=== PATIENT | female | born 1990 | race Caucasian/White ===

== ENCOUNTER 2020-02-22 16:40 | Outpatient (CLI) | payer OTHER, SELFPAY ==
[2020-02-22 16:57] VITALS: BP 108/65; PULSE 64; TEMP 37.2; O2SAT 99
[2020-02-22 17:06] VITALS: BMI 31.3
--- NOTE | 2020-03-04 09:03 | OB.TRI.PN ---
Progress Notes Date of Service: 02/24/20 Progress Note: 29 year old female.Presented with contractions and possible signs of labor. No vaginal bleeding and good FM O:No cervical change Reactive NST A: False Labor P: 1) D/C home
== END 2020-02-22 17:25 | disposition home or self-care (01) ==
LOC: WPOUT 16:48 → OBT 16:49
PROVIDERS: PCP Internal Medicine; Visit Provider Advanced Practice Midwife
DX: O47.9 False labor, unspecified (principal)
CPT/HCPCS: 59050; 99218; G0378

== ENCOUNTER 2020-02-26 20:16 | Inpatient (IN) | payer OTHER, SELFPAY ==
[2020-02-26] VITALS (14 sets, daily range): BP systolic 100–126; BP diastolic 58–75; PULSE 60–80; TEMP 36.7–37.3; O2SAT 97; BMI 31.8
[2020-02-26] MEDS: Lactated Ringers 1,000 ML 50 ML IV (20:20)
[2020-02-26] MEDS: Oxytocin 30 units/NS 500 ml 30 UNITS/500 ML IV.SOLN 334 UNITS IV (20:55)
[2020-02-26 21:14] LABS: Absolute Lymphocyte Count 2.53 X10^3/uL (0.83-4.51); Absolute Neutrophil Count 9.3 X10^3/uL (2.0-7.7); Basophil# 0.06 X10^3/uL; Basophil% 0.5 % (0-1); Eosinophil# 0.24 X10^3/uL; Eosinophils% 1.9 % (0-5); Hematocrit 41.7 % (37-47); Hemoglobin 13.7 g/dL (12.0-15.0); Lymphocyte # 2.53 X10^3/ul (4.0); Lymphocyte % 19.6 % (19-41); Mean Corp Hgb Conc 32.9 g/dL (32-36); Mean Corpuscular Volume 85.3 fL (81-99); Mean Platelet Vol. 11.5 fl (6.2-12.0); Monocyte# 0.75 X10^3/uL; Monocyte% 5.8 % (0-10); NRBC Flagged by Analyzer 0 % (0-5); Neutrophil # 9.28 X10^3/uL (2.7-7.7); Neutrophil % 71.6 % (47-70); Platelet Count 174 K/mm3 (150-450); RBC Distribution Width CV 13.5 % (11.6-14.6); RBC Distribution Width SD 41.3 fl (35.1-43.9); Red Blood Count 4.89 M/mm3 (4.2-5.4); White Blood Count 12.9 K/mm3 (4.4-11.0)
--- NOTE | 2020-02-26 21:24 | PCM.HP.OB ---
History Date of Admission: 02/26/20 Final EVY: 03/07/20 Gestational age: 38 Weeks and 4 Days History of this : This is a 29 year-old, G [], P [], at weeks gestational age. Allergies No Known Allergies Allergy (Verified 12/14/15 01:37) Home Medications: Home Medications Vits [Prenatabs FA] 1 tablet PO DAILY 12/14/15 Ibuprofen [Motrin] 800 mg PO TID PRN PRN #30 tablet 12/16/15 Smoking Status: Never smoker History Past Pregnancies: Past Pregnancies Delivery Date Name GA/ Weeks Outcome Route Wt Infant Sex Labor Length Anesthesia Delivery Location Provider FOB Labs: See [facility] H&P Physical Exam Vitals: Vital Signs Pulse BP 65 126/75 H 02/26/20 19:56 02/26/20 19:56 Assessment/Plan This is a 29 year-old female presented in labor @38&4 Patient is now s/p
--- NOTE | 2020-02-26 21:26 | PCM.OPRPT ---
Vaginal Delivery Maternal Presentation: Active Labor Amniotic Membrane Rupture Type: Spontaneous at home Amniotic Fluid Description: Clear Final EVY: 03/07/20 Gestational age: 38 Weeks and 4 Days Date of Procedure: 02/26/20 Pre-Operative Diagnosis: Labor Post-Operative Diagnosis: Labor Surgery/ Procedure Performed: Spontaneous Vaginal Delivery Type of Anesthesia: None, Local with 1% lidocaine Description of Procedure: Patient in stirrups when C/C/+2. She pushed to deliver head. Shoulders & body easily followed. placed on maternal abdomen where 3VC clamped & cut in delayed fashion. Placenta delivered with gentle traction. Good uterine tone obtained. Presentation: BRIAN Placental Delivery Description: Expressed Placenta Disposition: [facility] Cord Vessel Description: 3 Vessels Cord Entanglement: None Estimated Blood Loss: 300ml Infant A gender: Male (1 minute): 7 (5 minute): 9 Episiotomy Description: None Laceration: 2nd degree - perineal - repaired with 3-0 vicryl Medications given after delivery: IV Pitocin Complications: None
[2020-02-26] MEDS: Ketorolac 30 MG/ML Syringe IV (22:33)
[2020-02-27] MEDS: Ibuprofen 600 MG Tablet PO ×2 (01:47→23:53)
[2020-02-27 03:30] VITALS: BP 102/61; PULSE 66; RESP 18; TEMP 36.8
--- NOTE | 2020-02-27 07:55 | PCM.PN.OB ---
Subjective: pt seen at bedside, doing well. pt reports good pain control. lochia mild. breast feeding well. - Physical Exam Vitals/I&O's: Vital Signs Temp Pulse Resp BP Pulse Ox 98.2 F 66 18 102/61 97 02/27/20 03:30 02/27/20 03:30 02/27/20 03:30 02/27/20 03:30 02/26/20 19:55 Weight: 81.647 kg Body Mass Index (BMI) 31.8 Intake and Output for Last 24 Hours 02/25/20 02/26/20 02/27/20 23:59 23:59 23:59 Intake Total 525 / 525 1000 / 1000 Output Total 700 / 700 Balance 525 / 225 300 / 300 General: Alert, Oriented x3 Abdomen: Soft, Non Tender, Non-Distended, - - fundus firm Extremities: No Calf Tenderness Laboratory Results 02/26/20 20:20: WBC 12.9 H, RBC 4.89, Hgb 13.7, Hct 41.7, MCV 85.3, MCH 28.0, MCHC 32.9, RDW Std Deviation 41.3, RDW Coeff of Tucker 13.5, Plt Count 174, MPV 11.5, Immature Gran % (Auto) 0.600, Neut % (Auto) 71.6 H, Lymph % (Auto) 19.6, [place] % (Auto) 5.8, Eos % (Auto) 1.9, Baso % (Auto) 0.5, Absolute Neuts (auto) 9.3 H, Absolute Lymphs (auto) 2.53, Nucleated RBC % 0 02/26/20 20:20: Blood Type O POSITIVE, Antibody Screen NEGATIVE Current Medications Acetaminophen (Tylenol) 1,000 mg PO Q8H PRN PRN PRN Reason: Pain Score 1-3/10 Bisacodyl (Dulcolax) 10 mg RECTAL UD PRN PRN Reason: If no BM Dibucaine (Dibucaine) 1 applic TOPICAL TID PRN PRN; Protocol PRN Reason: Discomfort Hydrocortisone (Hytone) 1 applic TOPICAL TID PRN PRN; Protocol PRN Reason: Discomfort Ibuprofen (Motrin) 600 mg PO Q6H PRN PRN PRN Reason: Pain Score 1-3/10 Last Admin: 02/27/20 01:47 Dose: 600 mg Documented by: Methylergonovine Maleate (Methergine) 0.2 mg IM X1 PRN PRN Reason: Excess bleeding/uterine atony Ondansetron HCl (Zofran) 4 mg IV Q4H PRN PRN PRN Reason: Nausea Oxycodone HCl (Oxyir) 5 - 10 mg PO Q4H PRN PRN PRN Reason: Pain Score 4-10/10 Senna/Docusate Sodium (Senokot-S, Gifty-Colace) 1 - 2 tablet PO DAILY PRN PRN PRN Reason: Constipation Simethicone (Mylicon) 80 mg PO PCHS PRN PRN Reason: Indigestion/Stomach pain Sodium Chloride () 5 - 15 ml IV UD PRN PRN Reason: SALINE FLUSH Medical Necessity - Tobacco Use Smoking Status: Never smoker Assessment/Plan PPD#1, doing well routine care pain mgmt dc home
[2020-02-27 08:14] VITALS: BP 94/65; PULSE 71; RESP 16; TEMP 37; O2SAT 95
[2020-02-27 12:29] VITALS: BP 119/64; PULSE 77; RESP 16; TEMP 37.4; O2SAT 96
[2020-02-27] MEDS: Acetaminophen 500 MG Tablet 1000 MG PO (12:43)
[2020-02-27 16:04] VITALS: BP 99/57; PULSE 67; RESP 16; TEMP 37.1; O2SAT 97
[2020-02-27 21:15] VITALS: BP 103/63; PULSE 72; RESP 15; TEMP 36.9; O2SAT 99
[2020-02-28 02:12] VITALS: BP 104/63; PULSE 54; RESP 15; TEMP 36.8; O2SAT 98
[2020-02-28] MEDS: Dibucaine 30 GM Tube 1 APPLIC TOPICAL (06:43)
--- NOTE | 2020-02-28 07:13 | PCM.PN.OB ---
Subjective: Patient seen at bedside, doing well. Patient reports good pain control. Mild lochia. Breast-feeding without difficulty. Ready for DC home today. - Physical Exam Vitals/I&O's: Vital Signs Temp Pulse Resp BP Pulse Ox 98.2 F 54 L 15 104/63 98 02/28/20 02:12 02/28/20 02:12 02/28/20 02:12 02/28/20 02:12 02/28/20 02:12 Oxygen Delivery Method Room Air Weight: 81.647 kg Body Mass Index (BMI) 31.8 Intake and Output for Last 24 Hours 02/26/20 02/27/20 02/28/20 23:59 23:59 23:59 Intake Total 525 / 525 1000 / 1000 Output Total 700 / 700 Balance 525 / 225 300 / 300 General: Alert, Oriented x3 Abdomen: Soft Extremities: No Calf Tenderness Current Medications Acetaminophen (Tylenol) 1,000 mg PO Q8H PRN PRN PRN Reason: Pain Score 1-3/10 Last Admin: 02/27/20 12:43 Dose: 500 mg Documented by: Bisacodyl (Dulcolax) 10 mg RECTAL UD PRN PRN Reason: If no BM Dibucaine (Dibucaine) 1 applic TOPICAL TID PRN PRN; Protocol PRN Reason: Discomfort Last Admin: 02/28/20 06:43 Dose: 1 tube Documented by: Hydrocortisone (Hytone) 1 applic TOPICAL TID PRN PRN; Protocol PRN Reason: Discomfort Ibuprofen (Motrin) 600 mg PO Q6H PRN PRN PRN Reason: Pain Score 1-3/10 Last Admin: 02/27/20 23:53 Dose: 600 mg Documented by: Methylergonovine Maleate (Methergine) 0.2 mg IM X1 PRN PRN Reason: Excess bleeding/uterine atony Ondansetron HCl (Zofran) 4 mg IV Q4H PRN PRN PRN Reason: Nausea Oxycodone HCl (Oxyir) 5 - 10 mg PO Q4H PRN PRN PRN Reason: Pain Score 4-10/10 Senna/Docusate Sodium (Senokot-S, Gifty-Colace) 1 - 2 tablet PO DAILY PRN PRN PRN Reason: Constipation Simethicone (Mylicon) 80 mg PO PCHS PRN PRN Reason: Indigestion/Stomach pain Sodium Chloride () 5 - 15 ml IV UD PRN PRN Reason: SALINE FLUSH Medical Necessity - Tobacco Use Smoking Status: Never smoker Assessment/Plan PPD#2, doing well routine care pain mgmt dc home
--- NOTE | 2020-02-28 07:15 | DCINST_ITS ---
Discharge Diet: No Restrictions Discharge Activity: Return to Normal Activity, May not drive while taking narcotic pain medications., May Shower May resume sexual activity in: 4-6 weeks Additional Activity Instructions:: Nothing in the vagina for 4-6 weeks. You may return to work/school in 6 weeks. Call your doctor if your incision/area has: Continuous Slow Oozing, Sudden Increased Bleeding, Increased Pain/ Swelling, Increased Redness, Foul Smelling Discharge Additional Instructions: If you experience any of the following, contact your healthcare provider. * Bleeding that soaks a pad every hour for 2 hours * Fever 100.4 or higher * Unrelieved incision or abdominal pain * Swelling, redness, discharge or bleeding from your incision or episiotomy site * Your incision begins to separate * Problems urinating (including inability to urinate or burning while urinating). * Visual changes * Severe headache * Flu-like symptoms * Pain or redness in one of both of your breasts * Pain, warmth, tenderness or swelling in your legs, especially the calf area * Frequent nausea and vomiting * Symptoms of depression or anxiety If you experience any of the following, call 911 or go to the nearest Emergency Room. * Chest pain * Problems breathing * Seizure activity * Partial or complete paralysis of a body part, slurred speech, weakness or drooping of the face, or a sudden inability to walk or hold your balance Allergies/Adverse Reactions: Allergies No Known Allergies Allergy (Verified 12/14/15 01:37) Medications to take at Discharge Vits [Prenatabs FA ] 1 tablet PO DAILY 12/14/15 Ibuprofen [Motrin] 600 mg PO Q6H PRN PRN #30 tab 02/28/20 The following prescriptions were given: Ibuprofen [Motrin] 600 mg PO Q6H PRN PRN #30 tab PRN Reason: Pain Score 1-3/10 Prescription Printed When: Call to make an appointment with your doctor in 1-2 weeks- virtual visit is fine. need 6 week visit. [phone] Primary Care Physician: Poonam Turcios DO [Primary Care Provider] - Test Results: Test results from this visit will be discussed in further detail at your follow- up appointment, if applicable.
[2020-02-28 08:40] VITALS: BP 97/63; PULSE 59; RESP 20; TEMP 36.3; O2SAT 99
== END 2020-02-28 09:30 | disposition home or self-care (01) | DRG 807 ==
LOC: WPOUT 20:21 → WP 20:21
PROVIDERS: Admitting Provider Obstetrics & Gynecology; PCP Internal Medicine; Visit Provider Obstetrics & Gynecology
DX: O70.1 Second degree perineal laceration during delivery (principal); Z37.0 Single live birth; Z3A.38 38 weeks gestation of pregnancy
CPT/HCPCS: 59025; 59050; 85025; 86850; 86900; 86901; 99218; J7120; G0378